=== PATIENT | female | born 1955 ===

== ENCOUNTER 2022-06-20 06:47 | Inpatient (IN) | payer OTHER ==
[~2022-06-20] VITALS: Ht 149.9 cm; Wt 65.8 kg
[~2022-06-20 06:47] MED LIST: ACETAMINOPHEN500 M1 PO; ADULT LOW DOSE81 M1 PO; ALLERGY RELIEF10 M3 PO; CARDURA1 MG PO; FISH OIL 1,2001 EAC1 PO; MULTIPLE VITAM1 EAC2 PO; PRAVASTATIN SOD20 MG PO; ULTRAM50 MG PO
[2022-06-21] MEDS ORDERED: CARDURA1 MG PO (12:41)
[2022-06-21] MEDS ORDERED: ADULT LOW DOSE81 M1 PO (12:41)
[2022-06-21] MEDS ORDERED: PRAVASTATIN SOD20 MG PO (12:41)
== END 2022-06-21 14:04 | disposition home or self-care (01) | DRG 349 ==
LOC: CIR.AMB 06:47 → MEDI 14:22 → O/R 14:22 → MEDJ 18:11 → MEDI 18:44
PROVIDERS: Colon & Rectal Surgery; ADMIT Internal Medicine Geriatric Medicine; ATTEND Internal Medicine Geriatric Medicine
PROC: 06L Lower Veins, Occlusion (ICD-10-PCS; 2022-06-20)
PROC: B246ZZZ Ultrasonography of Right and Left Heart (ICD-10-PCS; 2022-06-20)
PROC: 3E0F7GC Introduction of Other Therapeutic Substance into Respiratory Tract, Via Natural or Artificial Opening (ICD-10-PCS; 2022-06-20)
PROC: 06BY0ZC Excision of Hemorrhoidal Plexus, Open Approach (ICD-10-PCS; principal; 2022-06-20 07:00)
DX: K64.8 Other hemorrhoids (principal); K64.4 Residual hemorrhoidal skin tags; Z20.822 Contact with and (suspected) exposure to COVID-19